=== PATIENT | female | born 2005 | race Caucasian/White ===

== ENCOUNTER 2025-03-15 19:41 | Emergency (ER) | payer OTHER, SELFPAY ==
--- NOTE | ~2025-03-15 | XR_ITS ---
CLINICAL HISTORY: R knee pain 4 view right knee Comparison: None provided Findings: No fractures or dislocations. No significant arthritic change or erosions. No joint effusion. No radiopaque foreign body. IMPRESSION: 1. No acute findings. This document has been electronically signed by: Ray Sapp MD on 03/15/2025 20:42:47
[2025-03-15 19:44] VITALS: BP 117/67; PULSE 118; RESP 16; TEMP 37.1; O2SAT 97; BMI 59.2
--- NOTE | 2025-03-15 19:46 | ED.LOWEXIN ---
HPI - Extremity Injury (Lower) General Chief Complaint: Extremity Injury, Lower Stated Complaint: right leg pain Time Seen by Provider: 03/15/25 21:10 Source: patient Mode of arrival: ambulatory Limitations: no limitations History of Present Illness ED Provider: Dr. Cinthia Oglesby HPI Narrative: Patient comes to the emergency room complaining of right-sided knee pain. Patient states that she has been having chronic knee pain for over 3 months. However, yesterday she slipped in her shower and landed on her knee. Patient states that she is able to bear weight but now her knee hurts more. Patient denies any other injuries. Related Data Previous Rx's ?Medication ?Instructions ?Recorded naproxen 250 mg tablet 250 mg PO BID #14 tabs 03/15/25 Allergies Allergy/AdvReac Type Severity Reaction Status Date / Time No Known Allergies Allergy Verified 03/15/25 19:49 Review of Systems Review of Systems: Constitutional : No Weight loss, No Fever, No Chills, No Night Sweats, No Fatigue, No Malaise ENT/Mouth : No Hearing loss, No Ear Pain, No Nasal Congestion, No Sinus Pain, No Hoarseness, No sore throat, No Rhinorrhea, No Swallowing Difficulty Eyes: No Eye Pain, No Swelling, No Redness, No Foreign Body, No Discharge, No Vision Changes Cardiovascular : No Chest Pain, No SOB, No Dyspnea on Exertion, No Orthopnea, No Edema, No Palpitations Respiratory : No Cough, No Sputum, No Wheezing, No Smoke Exposure, No Dyspnea Gastrointestinal : No Nausea, No Vomiting, No Diarrhea, No Constipation, No abdominal Pain, No Hematochezia, No Melena Genitourinary : no irregular bleeding, No Dysuria, No Urinary Frequency, No Hematuria, No Urinary Incontinence, No Urgency, No Flank Pain, No Urinary Flow Changes, No Hesitancy Musculoskeletal : Complaining of right knee pain, No Myalgias, No Joint Swelling Skin : No Skin Lesions, No rash Neuro : No Weakness, No Numbness, No Paresthesias, No Loss of Consciousness, No Dizziness, No Headache Psych : No Anxiety/Panic, No Depression, No SI/HI/AH/VH, No Social Issues, Heme/Lymph: No Bruising, No Bleeding,No Lymphadenopathy Endocrine : No Polyuria, No Polydipsia, No Temperature Intolerance PMFSH Social History Social History Advance Directives: No Advance Directives Information Provided: No Do you have a plan to hurt others: No Plan Physical Exam Exam: Exam: Appearance: Alert. Oriented X3. No acute distress. Eyes: Pupils equal, round and reactive to light. ENT: Pharynx normal. Neck: Normal inspection. Neck supple. No lymph nodes noted. No crepitus CVS: Normal heart rate and rhythm. Pulses normal. Normal S1 and S2 Respiratory: No respiratory distress. Breath sounds normal. No Wheezing. No rales Abdomen: Soft and nontender. No rigidity. No distention. Skin: Skin warm and dry. Normal skin color. Normal skin turgor. Extremities: No lower extremity edema. Patient is able to fully flex and extend the knee, pain to palpation over the patella area. Patient is able to bear weight Neuro: Oriented X 3. No motor deficit. No sensory deficit. Moving all extremities. No slurred speech. CN 2 through 12 grossly intact Psych: calm, cooperative, normal affect Vital Signs: Vital Signs: Last Vital Signs Temp 98.4 F 03/15/25 20:29 Pulse 104 H 03/15/25 20:29 Resp 18 03/15/25 20:29 BP 118/68 03/15/25 20:29 Pulse Ox 97 03/15/25 20:29 O2 Del Method Room Air 03/15/25 20:29 BMI result Body Mass Index 59.2 Course Course Course Narrative: This is a Rapid Medical Exam performed in triage by Irma Haynes PA-C. Full HPI, ROS and PE to be performed by primary ED provider. 19 yo F presenting to the ED c/o R knee pain x3 mos, worsening yesterday s/p fall yesterday in the bathroom. states slipped on water PE: ambulating with slow antalgic gait Plan: XR Medical Decision Making Medical Decision Making MDM Narrative: Patient was given a dose of naproxen. X-rays did not show any acute abnormality I discussed with the patient that it is possible that she may need to be referred through her primary care physician for an MRI since she has been having chronic pain. Patient declined crutches, states that she can walk. Independent Interpretation I performed an independent interpretation of an: Plain X-Ray Radiology Impression Discussion of test interpretation with radiology: I have reviewed the radiologist's reading. Radiologist Impression: No fractures or dislocations. No significant arthritic change or erosions. No joint effusion. No radiopaque foreign body. Discharge Plan Discharge Clinical Impression: Contusion of knee Patient Disposition: Home, Self-Care Instructions: Contusion in Adults (ED), P.R.I.C.E. Treatment (ED) Additional Instructions: Please follow-up with your primary care physician tomorrow. If you have any worsening or new symptoms, please return to the emergency room or call 911 Prescriptions: New naproxen 250 mg tablet 250 mg PO BID Qty: 14 0RF Stand Alone Forms: Work/School Release Print Language: Uzbek
[2025-03-15 20:29] VITALS: BP 118/68; PULSE 104; RESP 18; TEMP 36.9; O2SAT 97
[2025-03-15 21:52] VITALS: BP 108/71; PULSE 85; RESP 16; TEMP 36.7; O2SAT 100
--- NOTE | 2025-03-15 22:04 | PC.NURSE ---
pts phone - RN called pts mom pn file- no answer. RN left vm.
[2025-03-15 23:10] VITALS: BP 108/71; PULSE 85; RESP 16; TEMP 36.7; O2SAT 100
== END 2025-03-15 23:10 | disposition home or self-care (01) ==
PROVIDERS: Emergency Provider Emergency Medicine
DX: S80.01XA Contusion of right knee, initial encounter (principal); W18.2XXA Fall in (into) shower or empty bathtub, initial encounter; Y93.9 Activity, unspecified; Y92.9 Unspecified place or not applicable; Y99.9 Unspecified external cause status
CPT/HCPCS: 73564; 99283; 99284

== ENCOUNTER → 2025-03-15 19:47 | Outpatient (BNV) | payer OTHER, SELFPAY | PROVIDERS: Visit Provider Radiology Diagnostic Radiology | DX: M25.561 Pain in right knee (principal) | CPT/HCPCS: 73564 ==

== ENCOUNTER 2025-04-14 09:46 | Outpatient (AMB) | payer OTHER, SELFPAY ==
[2025-04-14 09:53] VITALS: BP 140/88; PULSE 105; RESP 18; O2SAT 98; BMI 58.4
--- NOTE | 2025-04-14 09:53 | MHC.PC.OV ---
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 Pt sees a sap basis in [place]. The sap basis had told the pt she has signs of sleep apnea due to her waking up with shortness of breath. She is also getting a dental procedure done but they aren' t able to until she goes for a sleep study. Archivist Political History Required: No Accompanied by: Self / Same As Patient Allergies No Known Allergies Allergy (Verified 04/14/25 09:54) Medication List - Last Reconciled 04/14/25 by Kristyn Mendosa MD No Known Home Meds Tobacco use date assessed: 04/14/25 Dental Screening Dental Screen Date: 04/14/25 Did you have a dental visit in the last 12 months?: Yes Did you have a dental problem in the last 6 months where you did not have access to dental care?: No Was dental information given to patient?: Patient has dentist HPI HPI Comments History of Present Illness Details The patient is a 19 year old female with PMH of ADHD, Obesity and right knee pain presenting to establish primary care and address concerns of ADHD, right knee pain, and weight management. She has no significant past medical or surgical history. Her maternal grandmother had cancer. She denies any family history of cardiac disease or colon cancer. She does not take any regular medications. The patient reports a longstanding diagnosis of ADHD, which was formally confirmed last year. She has never been treated with medication but is interested in starting due to difficulty with focus. The patient has persistent right knee pain following a fall before , for which she was seen in an emergency room. Knee Xray was nagetive and she was discharged on Naproxen. The patient reports a lifelong history of being overweight, with weight gain that has continued to increase over time. She reports snoring and sometimes waking up choking at night. [facility] Medical History (Updated 04/14/25 @ 11:49 by Kristyn Mendosa MD) ADHD Family History Paternal Grandmother Diabetes Maternal Grandmother Cancer Paternal Grandmother Accelerated hypertension Cancer Maternal Aunt Mental health disorder Social History Alcohol intake: never Patient Tobacco Use Status: Never used Tobacco e-Cigarette/Vaping Use: Never Used Current occupational status: unemployed Cognitive needs: No Hearing needs: No Vision needs: No Questionnaire PHQ-9 Over the last 2 weeks, how often have you been bothered by any of the following problems? 1. Little interest or pleasure in doing things: several days 2. Feeling down, depressed, or hopeless: several days 3. Trouble falling or staying asleep, or sleeping too much: more than half the days 4. Feeling tired or having little energy: more than half the days 5. Poor appetite or overeating: more than half the days 6. Feeling bad about yourself - or that you are a failure or have let yourself or your family down: several days 7. Trouble concentrating on things, such as reading the newspaper or watching television: more than half the days 8. Moving or speaking so slowly that other people could have noticed. Or the opposite - being so fidgety or restless that you have been moving around a lot more than usual: several days 9. Thoughts that you would be better off or of hurting yourself in some way: not at all Total score: 12 Depression Screening Interpretation: Positive (Sees therapy. Referred to psychiatry.) Depression Screening Done: Yes Source: Developed by Drs. Sajan Atkinson, Sonya Fonseca, Jerson Pittman and colleagues, with an educational merissa from [employer]. Thrive Questionnaire Date Thrive assessed: 04/14/25 I am a: Patient What is your living situation today?: I do not have a steady places to live I choose not to answer this question Within the past 12 months, did the food you bought not last and you didn't have the money to get more?: Often true Within the past 12 months, did you worry whether your food would run out before you got money to buy more?: Sometimes True Do you have trouble paying for medicines?: I choose not to answer this question Do you have trouble getting transportation to medical appointments?: No Do you have trouble paying your heating and electricity bill?: I choose not to answer this question Do you have trouble taking care of your child, family member or friend?: No Do you have trouble with day-to-day activities such as bathing, preparing meals, shopping, managing finances, etc.?: No Are you currently unemployed and looking for a job?: Yes Are you interested in more education?: Yes Please select the resources that you would like help with: None Currently or been in a relationship where the following occur: I choose not to answer THRIVE Score: 3 AUDIT C Alcohol Use Questionnaire (AUDIT-C) 1. How often do you have a drink containing alcohol?: Never 3. How often do you have six or more drinks on one occasion?: Never Total Score: 0 ALYSHA-7 AMB Questionnaire ALYSHA-7 Date ALYSHA - 7 assessed: 04/14/25 Feeling nervous, anxious, or on edge: 1 = Several days Not being able to stop or control worryin = Nearly every day Worrying too much about different things: 3 = Nearly every day Trouble relaxin = Nearly every day Being so restless that it is hard to sit still: 0 = Not at all Becoming easily annoyed or irritable: 2 = More than half the days Feeling afraid as if something awful might happen: 2 = More than half the days Total ALYSHA-7 score (0-4 normal; 5-9 mild; 10-14 moderate; 15-21 severe): 14 Source: Developed by Drs. Sajan Atkinson, Sonya Fonseca, Jerson Pittman and colleagues, with an educational merissa from [employer]. Review of Systems Const Details: Positives besides what was mentioned in HPI are in BOLD Constitutional: No Weight Change, No Fever, No Chills, No Night Sweats, No Fatigue, No Malaise ENT/Mouth: No Hearing Changes, No Ear Pain, No Nasal Congestion, No Sinus Pain, No Hoarseness, No sore throat, No Rhinorrhea, No Swallowing Difficulty Eyes: No Eye Pain, No Swelling, No Redness, No Foreign Body, No Discharge, No Vision Changes Cardiovascular: No Chest Pain, No SOB, No PND, No Dyspnea on Exertion, No Orthopnea, No Claudication, No Edema, No Palpitations Respiratory: No Cough, No Sputum, No Wheezing, No Smoke Exposure, No Dyspnea Gastrointestinal: No Nausea, No Vomiting, No Diarrhea, No Constipation, No Pain, No Heartburn, No Anorexia, No Dysphagia, No Hematochezia, No Melena, No Flatulence, No Jaundice Genitourinary: No Dysmenorrhea, No DUB, No Dyspareunia, No Dysuria, No Urinary Frequency, No Hematuria, No Urinary Incontinence, No Urgency, No Flank Pain, No Urinary Flow Changes, No Hesitancy Musculoskeletal: No Arthralgias, No Myalgias, No Joint Swelling, No Joint Stiffness, No Back Pain, No Neck Pain, No Injury History Skin: No Skin Lesions, No Pruritis, No Hair Changes, No Breast/Skin Changes, No Nipple Discharge Neuro: No Weakness, No Numbness, No Paresthesias, No Loss of Consciousness, No Syncope, No Dizziness, No Headache, No Coordination Changes, No Recent Falls Psych: No Anxiety/Panic, No Depression, No Insomnia, No Personality Changes, No Delusions, No Rumination, No SI/HI/AH/VH, No Social Issues, No Memory Changes, No Violence/Abuse Hx., No Eating Concerns Heme/Lymph: No Bruising, No Bleeding, No Transfusions History, No Lymphadenopathy Endocrine: No Polyuria, No Polydipsia, No Temperature Intolerance Physical exam (Primary Care) Vital Signs: Last Vital Signs Pulse 105 H 04/14/25 09:53 Resp 18 04/14/25 09:53 BP 140/88 H 04/14/25 09:53 Pulse Ox 98 04/14/25 09:53 Oxygen Delivery Method Room Air 04/14/25 09:53 BMI result Body Mass Index 58.4 Tobacco/Smoking Status: Tobacco use Status Tobacco use date assessed 04/14/25 04/14/25 10:04 Patient Tobacco Use Status Never used Tobacco 04/14/25 10:04 e-Cigarette/Vaping Use Never Used 04/14/25 10:04 PHQ-9: PHQ-9 Score PHQ-9: Total score 12 04/14/25 10:20 Depression Screening Interpretation: Positive (Sees therapy. Referred to psychiatry.) Thrive Assessment: Date of Thrive Assessment Date Thrive assessed 04/14/25 04/14/25 10:04 Currently or been in a relationship where the following occur: I choose not to answer Const Other: Pertinent findings are in BOLD GENERAL APPEARANCE NAD, activity normal for age, well developed/ well nourished, no cyanosis, pallor, or diaphoresis. EYES lids/conjunctiva normal. EARS/NOSE/THROAT Mucous membranes moist, nares normal, lips/teeth normal uvula midline without oral pharyngeal erythema, exudate or swelling TMs normal bilaterally. No lymphangitis/lymphedema. HEAD/NECK normocephalic atraumatic, no facial trauma, neck is supple. Enlarged Tonsils. RESPIRATORY respiratory effort normal, speaks in full sentences, no tripod position, no accessory muscle use. Lungs clear to auscultation without rhonchi, wheezes, rales CARDIAC Regular rate and rhythm, no edema. ABDOMINAL Soft, ND/NT. No evidence of fluid wave. No pulsatile masses on exam, rebound tenderness, Conroy sign or pain over Mcburney's point. MUSCLES/EXTREMITIES No abnormal range of motion, no swelling. SKIN Warm, pink and dry. No rashes, dermatoses, petechiae or lesions. NEUROLOGICAL Speech is clear and appropriate. Normal level of consciousness. Gait and coordination are normal. 5/5 strength in all extremities. PSYCH Normal mood and affect. Judgement/competence is appropriate Office Procedures Flu Questionnaire Does the patient have a severe egg allergy?: No Does the patient have severe life threatening allergies?: No Does the patient have a fever or illness today?: No Has the patient ever had Guillain-[place] Syndrome?: No Has the patient ever had any past reaction to a flu shot?: No Immunizations Fluarix [id number] (PF) 45 mcg (15 mcg x 3)/0.5 mL IM syringe Performing Provider: Kristyn Mendosa MD Performing Location[facility] [facility] Administered by: Nisha Suarez CMA on 04/14/25 10:30 Dose Route Admin Location Dispensed Lot Number Expiration Date [facility] Scale Clerk 0.5 mL IM Right Deltoid 0.5 mL [id number] 10/17/25 95689-654-71 [employer] VIS Given Date VIS Provided VIS Publication Date 04/14/25 Single Vaccine 24 Eligibility Eligibility Date Funding Source Not [facility] Eligible 04/14/25 Private Boostrix Tdap 2.5 Lf unit-8 mcg-5 Lf/0.5 mL intramuscular syringe Performing Provider: Kristyn Mendosa MD Performing Location: [facility] Administered by: Nisha Suarez CMA on 04/14/25 10:30 Dose Route Admin Location Dispensed Lot Number Expiration Date NDC Scale Clerk 0.5 mL IM Right Deltoid 0.5 mL [id number] 09/30/27 81111-463-04 [employer] Total Dispensed Waste 0.5 mL 0 % VIS Given Date VIS Provided VIS Publication Date 04/14/25 Single Vaccine 20 Eligibility Eligibility Date Funding Source Not [facility] Eligible 04/14/25 Private Coding Level of Care Code New Pt Level 4 (35228) Diagnoses ADHD F90.9 Healthcare maintenance Z00.00 Snoring R06.83 Obesity (BMI 35.0-39.9 without comorbidity) E66.9 Right knee pain M25.561 Time Spent (min) 40 Assessment & Plan Assessment & Plan (1) ADHD: Code(s): F90.9 - Attention-deficit hyperactivity disorder, unspecified type Category: Medical Plan: - The patient expresses a desire to trial medication for ADHD to improve focus. - A referral will be placed to a psychiatrist at the [facility] for a formal evaluation and to initiate treatment if deemed appropriate. - PCP can take over medication management once initiated by psychiatry. (2) Healthcare maintenance: Code(s): Z00.00 - Encounter for general adult medical examination without abnormal findings Category: Medical Plan: CBC, CMP, Lipid panel, A1C, TSH w T4. Ordered. Shingles 2 doses when >50 yo. At 50. COVID: two doses. Completed. Pneumococcal: >50 yo. 18-49 with CKD, lung disease, weakened immune system, Heart disease, DM, cochlear implant. At 50. Flu vaccine: Delined. Tdap: every 10 years. Today. Colonoscopy: 45-75. At 45. AAA: 65 -75. NI[address] CT lun - 80. NI. PSA: 50 -70 every two years. NI. HIV: We will get them later. HCV: We will get them later. (3) Snoring: Code(s): R06.83 - Snoring Category: Medical Plan: - The patient reports snoring and occasionally waking up choking. - Physical exam revealed large tonsils, which may be a contributing factor. - A referral will be placed to a sleep specialist for evaluation, likely including a sleep study, for suspected obstructive sleep apnea. (4) Obesity (BMI 35.0-39.9 without comorbidity): Code(s): E66.9 - Obesity, unspecified Category: Medical Plan: - The patient requested assistance with weight loss. - A referral will be placed to a weight management clinic for comprehensive support, including a business continuity director and potential pharmacotherapy. - Provided extensive dietary counseling focused on an elimination diet, specifically recommending the cessation of gluten, dairy products, red meat and sugars. - Discussed the principles of the Blue Zone diet, emphasizing a plant-based approach. - A follow-up is scheduled in three months to monitor progress, with consideration for starting weight loss medication at that time if needed. (5) Right knee pain: Code(s): M25.561 - Pain in right knee Category: Medical Plan: - The patient has persistent right knee pain following a fall. - Prescribed Voltaren gel 50g and a lidocaine patch for topical pain relief. - The patient was advised she can use the patch daily, especially at night, and that both medications are available over the counter. Plan This was a new patient visit to establish care. I discussed the patient's interest in starting medication for her longstanding ADHD and explained that a formal evaluation by a psychiatrist is the first step; I provided a referral to the [facility]. For her right knee pain, I prescribed topical Voltaren gel and a lidocaine patch and advised her that these are also available over the counter. We had an extensive discussion about weight management. I provided a referral to a weight management clinic and sleep medicine for suspected obstructive sleep apnea, given her symptoms of snoring and waking up choking. I recommended specific dietary changes, focusing on the elimination of gluten, dairy products, red meat and sugars, and encouraged her to research the Blue Zone diet. I ordered baseline labs, including CBC, CMP, A1c, lipids, and thyroid studies, as well as a urinalysis. The patient agreed to receive her flu and tetanus vaccines today. We will follow up in three months to review her progress and lab results, with the potential to initiate weight loss medication at that time. Her next routine physical is scheduled in six months. Orders: Orders Complete Blood Count no Diff Today Z00.00 - Encounter for general adult medical examination without abnormal findings Hemoglobin A1c Today Z00.00 - Encounter for general adult medical examination without abnormal findings TSH reflex Free T4 Today Z00.00 - Encounter for general adult medical examination without abnormal findings UA and rflx microscopic Today Z00.00 - Encounter for general adult medical examination without abnormal findings Influenza [id number] Immunization Today Z23 - Encounter for immunization TDaP Immunization Today Z23 - Encounter for immunization Comprehensive Met. Panel Today Z00.00 - Encounter for general adult medical examination without abnormal findings Lipid Panel Today Z00.00 - Encounter for general adult medical examination without abnormal findings Referrals Medical Weight Management Referral R06.83 - Snoring Psychiatry Referral F90.9 - Attention-deficit hyperactivity disorder, unspecified type Sleep Medicine Referral R06.83 - Snoring Medications: New diclofenac sodium 1% (Voltaren Arthritis Pain) apply to single elbow, wrist or hand; for hand includes palm/fingers/back of hand 2 grams topical QID 50 grams 2RF lidocaine 4% 1 patch topical DAILY PRN 10 ea 2RF pain
== END 2025-04-14 10:43 | disposition home or self-care (01) ==
LOC: HO.HMCH 09:46
PROVIDERS: PCP Internal Medicine; Visit Provider Internal Medicine
DX: F90.9 Attention-deficit hyperactivity disorder, unspecified type (principal); Z00.00 Encounter for general adult medical examination without abnormal findings; R06.83 Snoring; E66.9 Obesity, unspecified; M25.561 Pain in right knee; Z23 Encounter for immunization